=== PATIENT | male | born 1945 | race Caucasian/White ===

== ENCOUNTER 2019-08-18 08:53 | Outpatient (CLI) | payer OTHER ==
[~2019-08-18] VITALS: Ht 170.2 cm; Wt 65.9 kg
--- NOTE | ~2019-08-18 | HEMODYNAMI ---
PATIENT:RADHA CHUN MEDICAL RECORD: [id number] : 45 LOCATION:[facility] ADMISSION DATE: 08/18/19 Generatedon:08/18/201910:55 Patient name: RADHA CHUN Patient #: [id number] SSN: [id number] : 1945 Date of study: 08/18/2019 Page: Of Hemodynamic Procedure Report Patient Data Patient Demographics Procedure consent was obtained First Name: RADHA Gender: Male Last Name: LAY : 1945 Patient #: [id number] Age: 73 year(s) Race: SSN: [id number] Additional ID: [id number] Contact details Address: [address] [place] [address] ROAD State: [place] City: [facility] Zip code: [address] Admission Admission Data Admission Date: 08/18/2019 Admission Time: 8:53 Arrival Date: 08/18/2019 Arrival Time: 0:00 Admit Source: Other Insurance Payor: Private health insurance 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 Peripheral Procedures AFRO (Diagnostic) Procedure Description Procedure Date Procedure Date: 08/18/2019 Procedure Start Time: 10:31 Procedure End Time: 10:53 Procedure Staff Name Function Stew Mccullough MD Performing Physician Rajni Torres RT Monitor Anjelica Montaño RT Scrub Bridget Lockhart RN Nurse Procedure Data Cath Procedure Fluoroscopy Diagnostic fluoroscopy Total fluoroscopy Time: 4.4 time: 4.4 min min Diagnostic fluoroscopy Total fluoroscopy dose: 120 dose: 120 mGy mGy Contrast Material Contrast Material Type Amount (ml) Isovue 300 82 Entry Location Entry Primary Successful Side Size Upsize Upsize Entry Closure Succes sful Closure Location (Fr) 1 (Fr) 2 (Fr) Remarks Device Remarks Femoral Right 5 Fr 6 Fr 6 Fr Exoseal artery Long Short Estimated blood loss: 5 ml Diagnostic catheters Device Type Used For End Catheter Placement DIAGNOSTIC UF 5Fr Multi-vessel catheter ([id number]) Angiography Procedure Complications No complications Procedure Medications Medication Administration Route Dosage 0.9% NaCl I.V. 100 ml/hr Heparin Flush Bag added to field 2 bags (1000units/500ml NS) Lidocaine 2% added to field 20 Oxygen NC 2 l/min Versed I.V. 1 mg Fentanyl I.V. 50 mcg Heparin Bolus I.V. 4000 units Versed I.V. 0.5 mg Fentanyl I.V. 25 mcg Hemodynamics Rest BSA: 1.77 (m2) HGB: 12.7 (g/dl) O2 Consumption: Estimated: 191.19 (ml/min) O2 Co nsumption indexed: Estimated:108.02 (ml/min/m) Heart Rate: 51 (bpm) Snapshots Pre Cath Intra NCS Post Cath Vital Signs Time Heart Resp SPO2 etCO2 NIBP (mmHg) Rhythm Pain Sedation Rate (ipm) (%) (mmHg) Status Level (bpm) 10:19:51 51 13 100 32.4 202/87(168) NSR 0 (11) 10(A) , No pain 10:24:24 52 14 96 30.1 178/81(140) NSR 0 (11) 10(A) , No pain 10:28:48 53 12 97 32.4 183/80(144) NSR 0 (11) 10(A) , No pain 10:33:47 51 11 100 27.8 Measuring NSR 0 (11) 10(A) , No pain 10:34:26 53 13 97 30.1 170/72(137) NSR 0 (11) 9(A) , No pain 10:38:54 53 10 100 16.5 153/62(121) NSR 0 (11) 9(A) , No pain 10:43:12 55 10 96 37.6 146/68(110) NSR 0 (11) 9(A) , No pain 10:47:28 64 17 100 36.1 154/77(126) NSR 0 (11) 9(A) , No pain 10:51:48 56 27 99 38.3 158/71(125) NSR 0 (11) 10(A) , No pain Medications Time Medication Route Dose Verified Delivered Reason Notes Ef fectiveness by by 10:17:49 0.9% NaCl I.V. 100 Stew Bridget used for ml/hr Jamel Lockhart brand coordinator 10:17:57 Heparin Flush added 2 Stew Bridget used for Bag to bags Jamel Lockhart procedure (1000units/500ml field RN NS) 10:18:07 Lidocaine 2% added 20ml Stew Gill for local to vial Jamel Lockhart anesthetic field RN 10:18:16 Oxygen NC 2 Stew Bridget for low 02 l/min Jamel Lockhart sats RN 10:27:22 Versed I.V. 1 mg Stew Bridget for Jamel Lockhart sedation RN 10:27:32 Fentanyl I.V. 50 Stew Bridget for mcg Jamel TRUONG Chantelle sedation RN 10:33:01 Fentanyl I.V. 25 Stew Bridget for mcg Jamel TRUONG Chantelle sedation RN 10:33:50 Versed I.V. 0.5 Stew Bridget for mg Jamel TRUONG Chantelle sedation RN 10:36:30 Heparin Bolus I.V. 4000 Stew Bridget Per verified units Jamel Lockhart physician with dr HINA mccullough Procedure Log Time Note 9:52:52 Informed consent obtained and on chart 9:53:30 Admit Source: Other 9:53:45 Arrival Date: 08/18/2019 12:00:00 AM 9:54:14 Insurance Payor : Private health insurance 9:54:46 Patient Height : 67 inches 9:54:50 Patient Weight : 146 lbs 9:56:29 Diagnostic Cath Status : Elective 9:57:35 Procedure Status Peripheral. 9:57:38 Bridget Lockhart RN sent for patient. Start room use. 9:57:39 Time tracking: Regular hours (M-F 7:00 - 5:00) 9:57:45 Plan of Care:Hemodynamics will remain stable., Cardiac rhythm will remain stable., Comfort level will be maintained., Respiratory function will remain adequate., Patient/ family verbilizes understanding of procedure., Procedure tolerated without complication., Recovers from procedure without complications.. 10:17:33 Vital chart was started 10:17:49 0.9% NaCl 100 ml/hr I.V. was administered by Bridget Lockhart RN; used for procedure; Verbal order read back and verified. 10:17:57 Heparin Flush Bag (1000units/500ml NS) 2 bags added to field was administered by Bridget Lockhart RN; used for procedure; Verbal order read back and verified. 10:18:07 Lidocaine 2% 20ml vial added to field was administered by Bridget Lockhart RN; for local anesthetic; Verbal order read back and verified. 10:18:16 Oxygen 2 l/min NC was administered by Bridget Lockhart RN; for low 02 sats; Verbal order read back and verified. 10:19:52 Patient received from Pre/Post Procedure Room to CCL 2 Alert and oriented. Tansferred to table in Supine position. 10:19:53 Warm blankets applied, and verenice hugger turned on for patient comfort. 10:19:53 Correct patient and procedure confirmed by team. 10:19:54 ECG and BP/O2 sat monitors applied to patient. 10:19:55 Baseline sample Acquired. 10:19:59 Rhythm: sinus rhythm 10:20:05 H&P Date Dictated: 08/18/2019 Within 30 days and on chart., H&P Addendum completed by physician on day of procedure. (MUST COMPLETE FOR ALL OUTPATIENTS). 10:20:06 Pre-procedure instructions explained to patient. 10:20:07 Pre-op teaching completed and patient verbalized understanding. 10:20:08 Family in waiting room. 10:20:09 Patient NPO since Midnight. 10:20:12 Is the patient allergic to Iodine/contrast media? No. 10:20:14 Was the patient premedicated? No 10:20:14 Is patient on blood thinner?Yes 10:20:17 ACC The patient was administered the following blood thiners within the last 24 hours: ACCAspirin, ACCPlavix 10:20:23 Patient diabetic? No. 10:20:27 Previous problem with sedation/anesthesia? No ? 10:20:32 Snore? Yes 10:20:34 Sleep apnea? No 10:20:36 Deviated septum? Yes 10:20:37 Opens mouth fully? Yes 10:20:38 Sticks out tongue? Yes 10:20:40 Airway obstruction? No ? 10:20:43 Dentures? No ? 10:21:06 Pre procedure: right dorsailis pedis pulse 1+ Palpable, but thready & weak; easily obliterated 10:21:09 Pre procedure: left dorsailis pedis pulse 1+ Palpable, but thready & weak; easily obliterated 10:21:11 Patient pain scale 0/10 ?. 10:21:16 IV patent on arrival in left forearm with 0.9% NaCl at O. 10:21:18 Lab results completed and on chart. 10:21:23 Bilateral groins area was prepped with chlora-prep and draped in sterile fashion 10:21:24 Alarms reviewed by R. N. 10:21:24 Sharps counted by scrub and verified by R.N. 10:24:11 1) 90+ Normal kidney functon but urine findings or structural abnormalities or genetic trait point to kidney disease. 10:24:39 Maximum allowable contrast dose (3.7 X eGFR X 0.75)250 ml. 10:24:44 Physician arrived 10:24:45 --------ALL STOP TIME OUT------ 10:24:45 Final Timeout: patient, procedure, and site verified with staff and physician. All members of the team are in agreement. 10:24:47 Bilateral groins site verified by team. 10:24:50 Fire Safety Assessment: A--An alcohol-based skin anteseptic being used preoperatively., C--Open oxygen or nitrous oxide is being used., D--An ESU, laser, or fiber-optic light is being used. 10:24:55 Sedation plan: IV Moderate Sedation Medication:Versed, Fentanyl 10:25:15 Use device set Femoral Dx 10:25:16 ACIST Syringe (59360) opened to sterile field. 10:25:17 Bag Decanter (2002S) opened to sterile field. 10:25:17 Medline Cath Pack ([id number]) opened to sterile field. 10:25:19 ACIST Hand Control (07861) opened to sterile field. 10:25:19 ACIST Manifold (17728) opened to sterile field. 10:25:21 Tegaderm 4 x 4 (1626W) opened to sterile field. 10:25:23 SHEATH 5FR [place] (UGT711) opened to sterile field. 10:25:24 EMERALD Guide Wire (225-252) opened to sterile field. 10:27:22 Versed 1 mg I.V. was administered by Bridget Lockhart RN; for sedation; Verbal order read back and verified. 10:27:32 Fentanyl 50 mcg I.V. was administered by Bridget Lockhart RN; for sedation; Verbal order read back and verified. 10::43 Lab Result : eGFR NONAFRICAN 90 ml/min ::43 Lab Result : Creatinine 0.7 mg/dl 10::43 Lab Result : BUN 7 mg/dl 10::43 Lab Result : Hemoglobin 12.7 g/dl 10::03 Procedure started. 10:31:03 Full Disclosure recording started 10:31:07 Local anesthetic to right femoral artery with Lidocaine 2% by Stew Mccullough MD.INITIAL ACCESS ONLY 10:31:17 A 5 Fr sheath was inserted into the Right Femoral artery 10:32:20 A DIAGNOSTIC UF 5Fr catheter ([id number]) was advanced over the wire and used for Multi-vessel Angiography. 10:33:01 Fentanyl 25 mcg I.V. was administered by Bridget Lockhart RN; for sedation; Verbal order read back and verified. 10:33:50 Versed 0.5 mg I.V. was administered by Bridget Lockhart RN; for sedation; Verbal order read back and verified. 10:35:48 Abdominal angiogram w/ runoff was performed. 10:36:15 GLIDE WIRE ANGLE 260cm (LF6156) opened to sterile field. 10:36:16 SHEATH 6FR Destination (RSR01) opened to sterile field. 10:36:30 Heparin Bolus 4000 units I.V. was administered by Bridget Lockhart RN; Per physician; verified with dr mccullough Verbal order read back and verified. 10:36:47 UF catheter used to advance glide wire around the horn 10:37:05 Catheter removed. 10:37:23 Sheath upsized to a 6 Fr Long. 10:39:32 CHOICE PT Extra Support J 300cm guide wire ([id number]) opened to sterile field. 10:39:35 INFLATOR Merit BasixCompak (DZ2396) opened to sterile field. 10:39:46 choice pt wire advanced. 10:39:49 Wire advanced across lesion. 10:41:42 Inflate balloon Inflation number: 1 A POWERFLEX PRO 6.0 x 40 x 135cm balloon ([id number]) was prepped and advanced across the Mid Superficial Femoral, Left , then inflated to 9 ANTONIO for 0:10 (min:sec) . 10:41:48 Balloon removed over the wire. 10:43:16 SMART 6 X 40 X 120 stent ([id number]) was deployed across Mid Superficial Femoral, Left . 10:43:21 Stent catheter was removed intact over wire. 10:44:12 Inflation number: 2 The POWERFLEX PRO 6.0 x 40 x 135cm balloon ([id number]) was reinflated across the Mid Superficial Femoral, Left , to 13 ANTONIO for 0:10 (min:sec) . 10:45:06 Stent catheter was removed intact over wire. 10:45:07 ACT drawn and resulted at 264 seconds. (normal therapeutic range 180-240 seconds). 10:45:10 Wire removed. 10:45:20 Sheath upsized to a 6 Fr Short. 10:45:29 EXOSEAL 6Fr (EX600) opened to sterile field. 10:45:31 SHEATH 6FR [place] (BWF368) opened to sterile field. 10:45:49 Sheath removed intact; hemostasis achieved with Exoseal to the Right Femoral artery. 10:45:51 Procedure ended.(Physican Out) 10:46:07 Fluoroscopy time 04.40 minutes. 10:46:11 Flurop Dose total: 120 10:46:11 Fluoroscopy dose: 120 mGy 10:46:16 Dose Area Product 19626 mGy/cm. 10:46:21 Contrast amount:Isovue 300 82ml. 10:52:25 Insertion/operative site no bleeding no hematoma. 10:52:28 Post-op/insertion site Right Femoral artery dressed using a 4 x 4 and Tegaderm. 10:52:29 Post Procedure Pulses reassessed and unchanged 10:52:32 Post procedure rhythm: unchanged. 10:52:35 Estimated blood loss: 5 ml 10:52:37 Post procedure instruction explained to patient.Patient verbalizes understanding. 10:52:37 Patient needs reinforcement of post procedure teaching. 10:52:47 Procedure and supply charges have been captured, reviewed, submitted and are correct. 10:52:51 Procedure Complication : No complications 10:52:53 Vital chart was stopped 10:52:58 AFRO Findings: PVD: UPTWIST SPINNER performed (see procedure notes) 10:53:00 Operative report dictated upon procedure completion. 10:53:01 See physician's report for complete and final results. 10:53:03 Report given to Pre/Post Procedure Room. 10:53:05 Patient transfered to Pre/Post Procedure Room with Stretcher. 10:53:13 Procedure ended. 10:53:13 Full Disclosure recording stopped 10:53:24 ACC-PCI Only Patient was given prescriptions, or instructed by Stew Mccullough MD to start/continue the following medications upon discharge: Plavix 10:53:25 End room use (Document Last) Intervention Summary Intervention Notes Time ActionType Lesion and Equipment Action# Pressure Duration Attributes Used 10:41:42 Inflate Mid POWERFLEX 1 9 00:10 balloon Superficial PRO 6.0 x Femoral, 40 x 135cm Left balloon ([id number]) 10:43:16 Deploy self Mid SMART 6 X 1 expanding Superficial 40 X 120 stent Femoral, stent Left ([id number]) 10:44:12 Reinflate Mid POWERFLEX 2 13 00:10 balloon Superficial PRO 6.0 x Femoral, 40 x 135cm Left balloon ([id number]) Device Usage Item Name Manufacture Quantity Catalog Number Hospital Part Current Minim al Lot# / Charge Number Stock Stock Serial# Code ACIST Acist 1 16854 360076 427584 738557 20 Syringe Medical (85137) Systems Inc Bag Microtek 1 692153 79161 455931 5 Decanter Medical Inc. () Medline Medline 1 [id number] 850482 96148 281175 5 Cath Pack ([id number]) ACIST Hand Acist 1 90792 772453 558121 472048 5 Control Medical (90267) Systems Inc ACIST Acist 1 15230 824324 301358 308969 5 Manifold Medical (46417) Systems Inc Tegaderm 4 3M 1 1626W 782505 933695 108576 5 x 4 (1626W) SHEATH 5FR Terumo 1 TVM050 746654 996177 920607 5 [place] (OLQ395) EMERALD Cardinal 1 502-455 989629 022262 591307 5 Guide Wire Health (502-455) DIAGNOSTIC Cardinal 1 [id number] 982473 571656 970204 10 UF 5Fr Health catheter (840327G0) GLIDE WIRE Terumo 1 HY3094 351696 361394 160175 5 ANGLE 260cm (RZ1208) SHEATH 6FR Terumo 1 RSR01 256061 77436 470304 5 Destination (RSR01) CHOICE PT [place] 1 [id number] 703809 842962 232907 5 Extra Scientific Support J 300cm guide wire ([id number]) INFLATOR Merit 1 BW7032 392357 698465 478426 15 [facility] [place] Medical BasixCompak (UG3571) POWERFLEX Cardinal 1 [id number] 600703 049996 117295 5 PRO 6.0 x Health 40 x 135cm balloon ([id number]) SMART 6 X Cardinal 1 [id number] 675938 416305 740479 0 [id number] 40 X 120 Health stent ([id number]) EXOSEAL 6Fr Cardinal 1 EX600 470643 699072 136737 10 (EX600) Health SHEATH 6FR Terumo 1 BUY360 105806 072894 696075 40 [place] (AZR947) Signature Audit [place] Stage Time Signature Unsigned Intra-Procedure 08/18/2019 Anjelica Montaño 10:50:25 AM RT(R) Intra-Procedure 08/18/2019 Bridget 10:51:26 AM Chantelle SANTAMARIA Intra-Procedure 08/18/2019 Anjelica Montaño 10:55:45 AM RT(R) Signatures Performing Physician : Signature : Stew Mccullough MD Date : Time : Monitor : Rajni Brian Signature : RT Date : Time : Nurse : Bridget Signature : Chantelle RN Date : Time : [address] [place] [address]
[2019-08-18] MEDS ORDERED: LEXAPRO10 MG PO (09:29)
[2019-08-18] MEDS ORDERED: COREG6.25 MG PO (09:29)
[2019-08-18] MEDS ORDERED: WELLBUTRIN SR150 MG PO (09:29)
[2019-08-18] MEDS ORDERED: LIPITOR40 MG PO (09:29)
[2019-08-18] MEDS ORDERED: PLAVIX75 MG PO (09:29)
[2019-08-18] MEDS ORDERED: LISINOPRIL10 MG PO (09:30)
[2019-08-18 09:46] VITALS: BP 180/64; Ht 170.2 cm; Wt 65.9 kg
[2019-08-18 09:52] LABS: BASOPHILS 0.2 % (0-2); EOSINOPHILS 3.2 % (0-7); HEMATOCRIT 38.4 % (42.0-54.0); HEMOGLOBIN 12.7 g/dL (13.5-17.5); IMMATURE GRANULOCYTES 0.3 % (0-5); LYMPHOCYTES 15.4 % (15-50); MCH 35.4 pg (26.0-34.0); MCHC 33.1 g/dL (31.0-37.0); MEAN PLATELET VOLUME 10.8 fL (7.4-10.4); MONOCYTES 9.2 % (2-11); NEUTROPHILS 71.7 % (40-80); RBC 3.59 10x6/uL (4.20-6.10); RDW 11.8 % (11.5-14.5); WBC 6.6 10x3/uL (4.8-10.8)
[2019-08-18 09:55] LABS: PLATELET COUNT 173 10x3/uL (130-400)
[2019-08-18 10:02] LABS: CALC OSMOLALITY 276 mosm/kg (275-300); CALCIUM 8.7 mg/dL (8.5-10.1); CARBON DIOXIDE 27.5 mmol/L (21.0-32.0); CHLORIDE - SERUM 105 mmol/L (98-107); CREATININE - SERUM 0.7 mg/dL (0.6-1.3); GLUCOSE 90 mg/dL (74-106); POTASSIUM - SERUM 3.6 mmol/L (3.5-5.1); SODIUM 140 mmol/L (136-145); UREA NITROGEN 7 mg/dL (7-18); eGFR NON AFRICAN AMERICAN > 90 mL/min (90-120)
--- NOTE | 2019-08-18 11:01 | NUR ---
PT ARRIVED BY STRETCHER. PLACED ON MONITORS. ASSESSMENT COMPLETED. VSS. RIGHT GROIN DRESSING C/D/I. NO S/S OF HEMATOMA NOTED. CALL LIGHT WITHIN REACH.
--- NOTE | 2019-08-18 11:15 | NUR ---
PT RESTING COMFORTABLY. RIGHT GROIN DRESSING C/D/I. NO S/S OF HEMATOMA NOTED. CALL LIGHT WITHIN REACH. DR. CHRISTIE ROUNDED AND SPOKE WITH PT. PLAN TO BRING PT BACK FOR RIGHT SFA STENT WHEN CONVENIENT FOR PATIENT.
--- NOTE | 2019-08-18 11:45 | NUR ---
PT RESTING COMFORTABLY. VSS. IN SUPINE POSITION. CALL LIGHT WITHIN REACH. RIGHT GROIN DRESSING C/D/I. NO S/S OF HEMATOMA NOTED. BILATERAL FEET WARM TO TOUCH. CAP REFILL < 3 SECS. PEDAL PULSES DOPPLERABLE.
--- NOTE | 2019-08-18 12:20 | NUR ---
PT RESTING COMFORTABLY. VSS. RIGHT GROIN DRESSING C/D/I. NO S/S OF HEMATOMA NOTED. CALL LIGHT WITHIN REACH. PT VOIDED 300cc OF CLEAR YELLOW URINE IN URINAL. NO DIFFICULTY NOTED.
--- NOTE | 2019-08-18 13:00 | NUR ---
PT RESTING COMFORTABLY. VSS. RIGHT GROIN DRESSING C/D/I. NO S/S OF HEMATOMA NOTED. CALL LIGHT WITHIN REACH.
--- NOTE | 2019-08-18 13:30 | NUR ---
RIGHT GROIN DRESSING C/D/I. NO S/S OF HEMATOMA NOTED. CALL LIGHT WITHIN REACH. VSS. NO NEEDS AT THIS TIME. PT DOES NOT WANT TO SCHEDULE APPT TO COME BACK FOR RIGHT LEG STENT AT THIS TIME. HE STATES HES GOING TO HAVE TO SPEAK WITH HIS JOB TO SEE WHEN IT WOULD BE MOST CONVENIENT.
--- NOTE | 2019-08-18 14:00 | NUR ---
RIGHT GROIN DRESSING C/D/I. NO S/S OF HEMATOMA NOTED. CALL LIGHT WITHIN REACH. HEAD OF BED INC TO 30 DEGREES. TOLERATED WELL. SET UP WITH SANDWICH TRAY AND DRINK AT THIS TIME.
--- NOTE | 2019-08-18 14:30 | NUR ---
LEFT ARM PIV D/C'D WITH CATH TIP INTACT. TOLERATED WELL. RIGHT GROIN DRESSING C/D/I. NO S/S OF HEMATOMA NOTED. PT INSTRUCTED TO GET UP AND DRESSED AT THIS TIME.
--- NOTE | 2019-08-18 14:45 | NUR ---
DISCUSSED DISCHARGE INSTRUCTIONS WITH PT. HE VOICED UNDERSTANDING.
--- NOTE | 2019-08-18 14:46 | NUR ---
DISCUSSED WITH PT THE NEED FOR HIM TO TAKE 4 DAYS OFF WORK DUE TO THEY TYPE OF WORK HE DOES ([employer] L[employer]ING/[employer]ING [employer]AIRS). HE STATES THAT HE ONLY TOOK OFF WORK TOMORROW. HE STATES HE WILL SIT AT A DESK AND HAVE OTHERS DO HIS WORK. I INFORMED HIM OF THE RISK OF NOT FOLLOWING DISCHARGE INSTRUCTIONS AND HE VOICED UNDERSTANDING. HE DOES NOT WANT TO SCHEDULE FIX OF RIGHT SFA AT THIS TIME. I CALLED PROMISE AT [facility]'S OFFICE AND SHE WILL FOLLOW UP WITH HIM REGARDING SCHEDULING THIS PROCEDURE.
--- NOTE | 2019-08-18 15:05 | NUR ---
PT TAKEN OUT TO VEHICLE BY WHEELCHAIR. NO S/S OF DISTRESS NOTED. ALL BELONGINGS AND PAPERWORK IN HAND.
--- NOTE | 2019-08-22 13:28 | OP ---
PATIENT NAME: RADHA CHUN MEDICAL RECORD: [id number] :45 LOCATION:[facility] ADMISSION DATE: SURGEON: CARLEEN CHRISTIE MD DATE OF OPERATION: 08/18/2019 PROCEDURES: 1. SEWER LINE REPAIRER stent left SFA. 2. Aortofemoral runoff. 3. Abdominal aortography. INDICATION: Claudication and peripheral vascular disease. PROCEDURE IN DETAIL: After informed consent was obtained and after a detailed description of risks, benefits as well as alternative therapies, the patient elected to proceed with angiogram and angioplasty. The right femoral area was prepped and draped in normal sterile fashion. Right femoral artery was cannulated via modified Seldinger technique with placement of a 6-Georgian ojexjx-fla-yoig sheath. All catheters exchanged through this sheath. FINDINGS: The abdominal aortography was performed. The catheter was pulled down for aortofemoral runoff. Abdominal aortography reveals no significant abdominal aortic disease, no dissection or aneurysm formation. RIGHT LEG: A. Iliac: The common internal and external iliacs have moderate irregularities, heavy calcification, but no flow-limiting stenosis. B. Femoral system: The common and deep femoral are widely patent. Superficial femoral has 90% to 95% stenosis. C. Popliteal and infrapopliteal vessels: The popliteal is patent. Anterior tibial and posterior tibial appear to be occluded. There does appear to be 1-vessel runoff through a moderately diseased peroneal. LEFT LEG: A. Iliac: The common internal and external iliacs have moderate irregularities, but no flow-limiting stenosis. B. Femoral system: The common and deep femoral are widely patent. Superficial femoral has a previously placed stent that is widely patent; however, there is 90% to 95% stenosis in the mid distal vessel. C. Popliteal and infrapopliteal vessels: The popliteal is patent. Anterior tibial appears to be totally occluded. There is 2-vessel runoff through a diseased, but patent peroneal and posterior tibials. SEWER LINE REPAIRER STENT OF THE LEFT SFA: The balloon used was a 6.0 balloon. This yielded suboptimal result with severe intimal dissection after the balloon ruptured. Stenting was undertaken then with a 6 x 40 SMART stent. Result was 0% residual. IMPRESSION: Successful percutaneous transluminal angioplasty stent of the left superficial femoral artery going from 90% to 95% initial stenosis to 0% residual. PLAN: Plan For SEWER LINE REPAIRER stent of the right SFA in the future. TRANSINT:[id number] Voice Confirmation ID: [id number] DOCUMENT ID: [id number] OPERATIVE REPORT [id number] RADHA CHUN, CARLEEN TRUONG at 1328 CC: [id number] DICTATION DATE: 08/18/19 1137 POULTRY HUSBANDMAN: 08/18/19 1150 DEP CLI 08/18/19 [place] [id number] [place] [id number]
== END 2019-08-18 15:05 | disposition home or self-care (01) ==
LOC: D.CATH 08:53
PROVIDERS: ATTEND Internal Medicine Interventional Cardiology
DX: I70.213 Atherosclerosis of native arteries of extremities with intermittent claudication, bilateral legs (principal)

== ENCOUNTER 2019-09-01 08:47 | Outpatient (CLI) | payer OTHER ==
[~2019-09-01] VITALS: Ht 170.2 cm; Wt 67.3 kg
--- NOTE | ~2019-09-01 | HEMODYNAMI ---
PATIENT:RADHA CHUN MEDICAL RECORD: [id number] : 45 LOCATION:[facility] ADMISSION DATE: 09/01/19 Generatedon:09/01/201912:50 Patient name: RADHA CHUN Patient #: [id number] SSN: [id number] : 1945 Date of study: 09/01/2019 Page: Of Hemodynamic Procedure Report Patient Data Patient Demographics Procedure consent was obtained First Name: RADHA Gender: Male Last Name: LAY : 1945 Patient #: [id number] Age: 73 year(s) Race: SSN: [id number] Additional ID: [id number] Contact details Address: [address] [place] [address] ROAD State: [place] City: [facility] Zip code: [address] Past Medical History Allergies: No known allergies Admission Admission Data Admission Date: 09/01/2019 Admission Time: 8:47 Lab Results Lab Result Date: 09/01/2019 Lab Result Time: 0:00 Biochemistry Name Units Result Min Max BUN mg/dl 7 --(*---)-- 7 18 Creatinine mg/dl 0.8 --(-*--)-- 0.6 1.3 eGFR ml/min 90 --(*---)-- 90 120 NONAFRICAN CBC Name Units Result Min Max Hemoglobin g/dl 12.9 -*(----)-- 13.5 17.5 Procedure Procedure Types Cath Procedure Peripheral vascular Intervention Stent Stent-Fem/Popw/plasty Procedure Description Procedure Date Procedure Date: 09/01/2019 Procedure Start Time: 12:21 Procedure End Time: 12:48 Procedure Staff Name Function Stew Mccullough MD Performing Physician Matilda Ferrer RT Monitor Geri Rodriguez RT Monitor Heron Sheehan RN Nurse Ling Hernandez RT Scrub Procedure Data Cath Procedure Fluoroscopy Diagnostic fluoroscopy Total fluoroscopy Time: 8.4 time: 8.4 min min Diagnostic fluoroscopy Total fluoroscopy dose: 61 dose: 61 mGy mGy Contrast Material Contrast Material Type Amount (ml) Isovue 300 75 Entry Location Entry Primary Successful Side Size Upsize Upsize Entry Closure Succes sful Closure Location (Fr) 1 (Fr) 2 (Fr) Remarks Device Remarks Femoral Left 6 Fr 6 Fr Exoseal artery Short Long Estimated blood loss: 10 ml Diagnostic catheters Device Type Used For End Catheter Placement DIAGNOSTIC IMT 5Fr Procedure Catheter ([id number]) Procedure Complications No complications Procedure Medications Medication Administration Route Dosage 0.9% NaCl I.V. 100 ml/hr Oxygen etCO2 Nasal cannula 2 l/min Heparin Flush Bag added to field 2 bags (1000units/500ml NS) Lidocaine 2% added to field 20 Versed I.V. 2 mg Fentanyl I.V. Versed I.V. 1 mg Heparin Bolus I.V. 4000 units Plavix P.O. 75 mg Hemodynamics Rest HGB: 12.9 (g/dl) Heart Rate: 59 (bpm) Snapshots Pre Cath Intra NCS Post Cath Vital Signs Time Heart Resp SPO2 etCO2 NIBP (mmHg) Rhythm Pain Sedation Rate (ipm) (%) (mmHg) Status Level (bpm) 12:13:17 55 15 98 15.7 213/83(164) NSR 0 (11) 10(A) , No pain 12:17:51 57 12 98 37.5 201/72(151) NSR 0 (11) 10(A) , No pain 12:23:33 60 11 100 29.2 191/75(143) NSR 0 (11) 10(A) , No pain 12:28:10 61 10 100 0 172/75(143) NSR 0 (11) 10(A) , No pain 12:32:32 62 10 100 7.5 169/74(134) NSR 0 (11) 9(A) , No pain 12:37:58 65 10 100 31.5 173/71(139) NSR 0 (11) 9(A) , No pain 12:42:26 65 10 100 33 185/78(137) NSR 0 (11) 10(A) , No pain 12:46:54 67 13 100 31.5 182/89(141) NSR 0 (11) 10(A) , No pain Medications Time Medication Route Dose Verified Delivered Reason Notes Effectiveness by by 12:09:26 0.9% NaCl I.V. 100 Heron Heron Per physician ml/hr Aguila Sheehan RN RN 12:09:36 Oxygen etCO2 2 Heron Heron for low 02 sats Nasal l/min Aguila Sheehan cannula RN RN 12:09:48 Heparin Flush added 2 Heron Heron used for Bag to bags Aguila Sheehan procedure (1000units/500ml RN RN NS) 12:09:59 Lidocaine 2% added 20ml Heron Heron for local to vial Lorsamir Sheehan anesthetic field RN RN 12:19:41 Versed I.V. 2 mg Heron Heron for sedation Aguila Sheehan RN RN 12:19:50 Fentanyl I.V. Heron Heron for sedation Aguila Sheehan RN RN 12:22:56 Versed I.V. 1 mg Heron Heron for sedation Aguila Sheehan RN RN 12:26:01 Heparin Bolus I.V. 4000 Heron Heron for units Aguila Sheehan anticoagulation RN RN 12:43:19 Plavix P.O. 75 mg Ehron Heron for Aguila Sheehan antiplatelet RN RN therapy Procedure Log Time Note 11:54:46 Diagnostic Cath Status : Elective 11:55:18 Procedure Status Elective Heart Cath (OP). 11:55:21 Matilda Ferrer RT(R) sent for patient. Start room use. 11:55:25 Time tracking: Regular hours (M-F 7:00 - 5:00) 11:55:34 Plan of Care:Hemodynamics will remain stable., Cardiac rhythm will remain stable., Comfort level will be maintained., Respiratory function will remain adequate., Patient/ family verbilizes understanding of procedure., Procedure tolerated without complication., Recovers from procedure without complications.. 11:56:57 Patient received from Pre/Post Procedure Room to CCL 1 Alert and oriented. Tansferred to table in Supine position. 11:58:30 Signed procedure consent form obtained from patient. 11:58:32 Warm blankets applied, and verenice hugger turned on for patient comfort. 11:58:33 Correct patient and procedure confirmed by team. 11:58:40 ECG and BP/O2 sat monitors applied to patient. 11:58:48 H&P Date Dictated: 09/01/2019 H&P Addendum completed by physician on day of procedure. (MUST COMPLETE FOR ALL OUTPATIENTS), New H&P dictated by physician.. 11:58:53 Pre-procedure instructions explained to patient. 11:58:54 Pre-op teaching completed and patient verbalized understanding. 11:59:05 Family in patients room. 11:59:08 Patient NPO since Midnight. 11:59:19 Patient allergic to No known allergies 11:59:42 Deviated septum? Yes 12:00:26 Is the patient allergic to Iodine/contrast media? No. 12:00:28 Was the patient premedicated? Yes 12:00:31 Is patient on blood thinner?Yes 12:00:37 ACC The patient was administered the following blood thiners within the last 24 hours: ACCPlavix 12:00:41 Patient diabetic? No. 12:00:45 ----Pre-sedation anethsthesia assessment.---- 12:00:51 Previous problem with sedation/anesthesia? No ? 12:01:22 Snore? No 12::28 Sleep apnea? No 12::31 Opens mouth fully? Yes 12:01:35 Sticks out tongue? Yes 12:02:01 Airway obstruction? Yes deviated nasal septum 12:02:06 Dentures? No ? 12:03:28 Lab Result : Creatinine 0.8 mg/dl 12:03:28 Lab Result : BUN 7 mg/dl 12:03:28 Lab Result : Hemoglobin 12.9 g/dl 12:03:28 Lab Result : eGFR NONAFRICAN 90 ml/min 12:03:59 Pre procedure: left dorsailis pedis pulse 1+ Palpable, but thready & weak; easily obliterated 12:04:10 Patient pain scale 0/10 ?. 12:04:32 Lab results completed and on chart. 12:07:21 Risk of Mortality: 0.1 12:07:26 Risk of blood transfusion: 0.5 12:07:32 Risk of RAMIRO: 1.1 12:07:39 Left groin area was prepped with chlora-prep and draped in sterile fashion 12:07:42 Alarms reviewed by R. N. 12:07:43 Sharps counted by scrub and verified by R.N. 12:09:26 0.9% NaCl 100 ml/hr I.V. was administered by Heron Lorigan RN; Per physician; Verbal order read back and verified. 12:09:36 Oxygen 2 l/min etCO2 Nasal cannula was administered by Heron Sheehan RN; for low 02 sats; Verbal order read back and verified. 12:09:48 Heparin Flush Bag (1000units/500ml NS) 2 bags added to field was administered by Heron Sheehan RN; used for procedure; Verbal order read back and verified. 12:09:59 Lidocaine 2% 20ml vial added to field was administered by Heron Sheehan RN; for local anesthetic; Verbal order read back and verified. 12:10:53 Vital chart was started 12:11:01 Use device set CATH PACK 12:11:04 ACIST Syringe (23887) opened to sterile field. 12:11:05 ACIST Hand Control (96480) opened to sterile field. 12:11:06 ACIST Manifold (55772) opened to sterile field. 12:11:06 Medline Cath Pack ([id number]) opened to sterile field. 12:11:07 Bag Decanter (2002S) opened to sterile field. 12:11:08 EMERALD Guide Wire (502-286) opened to sterile field. 12:11:19 INFLATOR Merit BasixCompak (ON6348) opened to sterile field. 12:11:29 SHEATH 6FR Destination (RSR01) opened to sterile field. 12:11:41 SHEATH 6FR Crary (CJF298) opened to sterile field. 12:11:56 GLIDE WIRE Super Stiff Angled 260cm (UN2987) opened to sterile field. 12:15:16 Physician arrived 12:15:18 --------ALL STOP TIME OUT------ 12:15:20 Final Timeout: patient, procedure, and site verified with staff and physician. All members of the team are in agreement. 12:15:23 Left groin site verified by team. 12:15:31 Fire Safety Assessment: A--An alcohol-based skin anteseptic being used preoperatively., C--Open oxygen or nitrous oxide is being used., D--An ESU, laser, or fiber-optic light is being used. 12:15:38 Physical assessment completed. ASA score P 2 - A patient with mild systemic disease as per Stew Mccullough MD. 12:15:45 1) 90+ Normal kidney functon but urine findings or structural abnormalities or genetic trait point to kidney disease. 12:15:53 Maximum allowable contrast dose (3.7 X eGFR X 0.75)250 ml. 12:16:02 Sedation plan: IV Moderate Sedation Medication:Versed, Fentanyl 12:19:04 Rhythm: sinus rhythm 12:19:11 Baseline sample Acquired. 12:19:41 Versed 2 mg I.V. was administered by Heron Sheehan RN; for sedation; Verbal order read back and verified. 12:19:50 Fentanyl I.V. was administered by Heron Sheehan RN; for sedation; Verbal order read back and verified. 12:19:55 Zero performed for pressure channel P1 12::15 Procedure started. 12::15 Full Disclosure recording started 12:21:37 Local anesthetic to left femerol artery with Lidocaine 2% by Stew Mccullough MD.INITIAL ACCESS ONLY 12:22:30 A 6 Fr Short sheath was inserted into the Left Femoral artery 12:22:39 A DIAGNOSTIC IMT 5Fr Catheter ([id number]) was advanced over the wire and used for Procedure. 12:22:56 Versed 1 mg I.V. was administered by Heron Sheehan RN; for sedation; Verbal order read back and verified. 12:23:02 the glidewire is used to advance cath. 12:23:42 IMT ADVANCED OVER THE HORN. 12:24:49 IMT REMOVED OVER THE WIRE. 12:24:56 Sheath upsized to a 6 Fr Long. 12:25:18 LONG SHEATH ADVANCED AROUND HORN. 12:25:33 CHOICE PT Extra Support J 300cm guide wire ([id number]) opened to sterile field. 12:25:54 CHOICE PT wire advanced. 12:25:59 Wire advanced across lesion. 12:26:01 Heparin Bolus 4000 units I.V. was administered by Heron Sheehan RN; for anticoagulation; Verbal order read back and verified. 12:29:33 Inflate balloon Inflation number: 1 A SABER 6.0 x 6 x 150 balloon ([id number]) was prepped and advanced across the Mid Superficial Femoral, Left , then inflated to 13 ANTONIO for 0:10 (min:sec) . 12:29:52 Inflation number: 2 The SABER 6.0 x 6 x 150 balloon ([id number]) was reinflated across the Mid Superficial Femoral, Left , to 15 ANTONIO for 0:00 (min:sec) . 12:30:18 Balloon removed over the wire. 12:31:54 Inflation number: 3 The SABER 6.0 x 6 x 150 balloon ([id number]) was reinflated across the Mid Superficial Femoral, Left , to 13 ANTONIO for 0:00 (min:sec) . 12:33:07 Balloon removed over the wire. 12:36:15 SMART 6 X 120 X 120 stent ([id number]) was deployed across Mid Superficial Femoral, Left . 12:37:16 Stent catheter was removed intact over wire. 12:37:52 Inflation number: 4 The SABER 6.0 x 6 x 150 balloon ([id number]) was reinflated across the Mid Superficial Femoral, Left , to 17 ANTONIO for 0:00 (min:sec) . 12:38:07 Inflation number: 5 The SABER 6.0 x 6 x 150 balloon ([id number]) was reinflated across the Mid Superficial Femoral, Left , to 17 ANTONIO for 0:00 (min:sec) . 12:38:26 Inflation number: 6 The SABER 6.0 x 6 x 150 balloon ([id number]) was reinflated across the Mid Superficial Femoral, Left , to 17 ANTONIO for 0:00 (min:sec) . 12:39:40 Balloon removed over the wire. 12:39:41 Wire removed. 12:40:15 THE LONG SHEATH IS REPLACED WITH SHORT 6 JAPANESE SHEATH. 12:40:29 EXOSEAL 6Fr (EX600) opened to sterile field. 12:41:07 Sheath removed intact; hemostasis achieved with Exoseal to the Left Femoral artery. 12:41:20 Contrast amount:Isovue 300 75ml. 12:41:23 Procedure ended.(Physican Out) 12:41:48 ACT drawn and resulted at 308 seconds. (normal therapeutic range 180-240 seconds). 12:42:27 Fluoroscopy time 08.40 minutes. 12:43:01 Flurop Dose total: 61 12:43:01 Fluoroscopy dose: 61 mGy 12:43:08 Dose Area Product 6328 mGy/cm. 12:43:12 Maximum allowable dose exceeded? No. 12:43:19 Plavix 75 mg P.O. was administered by Heron Sheehan RN; for antiplatelet therapy; Verbal order read back and verified. 12:44:10 Sharps counted by scrub and verified by R.N. 12:44:14 Insertion/operative site no bleeding no hematoma. 12:44:20 Post-op/insertion site Left Femoral artery dressed using a 4 x 4 and Tegaderm. 12:44:27 Post left femerol artery:stable 12:44:30 Post Procedure Pulses reassessed and unchanged 12:44:34 Post-procedure physical assessment completed. ASA score P 2 - A patient with mild systemic disease as per Stew Mccullough MD. 12:44:39 Post procedure rhythm: unchanged. 12:44:43 Estimated blood loss: 10 ml 12:44:49 Post procedure instruction explained to patient.Patient verbalizes understanding. 12:44:51 Patient needs reinforcement of post procedure teaching. 12:47:24 Procedure and supply charges have been captured, reviewed, submitted and are correct. 12:47:32 Procedure Complication : No complications 12:47:38 Vital chart was stopped 12:47:49 AFRO Findings: PVD: CHRONIC SPECIALIST performed (see procedure notes) 12:47:52 Operative report dictated upon procedure completion. 12:47:53 See physician's report for complete and final results. 12:47:57 Report given to Pre/Post Procedure Room. 12:48:02 Patient transfered to Pre/Post Procedure Room with Stretcher. 12:48:26 Procedure ended. 12:48:26 Full Disclosure recording stopped 12:48:35 End room use (Document Last) Intervention Summary Intervention Notes Time ActionType Lesion and Equipment Action# Pressure Duration Attributes Used 12:29:33 Inflate Mid SABER 6.0 x 1 13 00:10 balloon Superficial 6 x 150 Femoral, balloon Left ([id number]) 12:29:52 Reinflate Mid SABER 6.0 x 2 15 00:00 balloon Superficial 6 x 150 Femoral, balloon Left ([id number]) 12:31:54 Reinflate Mid SABER 6.0 x 3 13 00:00 balloon Superficial 6 x 150 Femoral, balloon Left ([id number]) 12:36:15 Deploy self Mid SMART 6 X 1 expanding Superficial 120 X 120 stent Femoral, stent Left ([id number]) 12:37:52 Reinflate Mid SABER 6.0 x 4 17 00:00 balloon Superficial 6 x 150 Femoral, balloon Left ([id number]) 12:38:07 Reinflate Mid SABER 6.0 x 5 17 00:00 balloon Superficial 6 x 150 Femoral, balloon Left ([id number]) 12:38:26 Reinflate Mid SABER 6.0 x 6 17 00:00 balloon Superficial 6 x 150 Femoral, balloon Left ([id number]) Device Usage Item Name Manufacture Quantity Catalog Number Hospital Part Current Minim al Lot# / Charge Number Stock Stock Serial# Code ACIST Acist 1 67943 452123 471061 [id number] 20 Syringe Medical (55001) Systems Inc ACIST Hand Acist 1 50521 346288 147155 370297 5 Control Medical (00892) Systems Inc ACIST Acist 1 52754 727624 632033 491495 5 Manifold Medical (87981) Systems Inc Medline Medline 1 [id number] 061485 01837 524716 5 Cath Pack ([id number]) Bag Microtek 1 016711 15033 976232 5 DecMyrio Solution Inc. () EMERALD Cardinal 1 502-455 268056 268010 210706 5 Guide Wire Health (502-455) INFLATOR Merit 1 UW2604 015160 696504 396286 15 Merit Medical BasixCompak (XO7715) SHEATH 6FR Terumo 1 RSR01 905215 52134 615675 5 Destination (RSR01) SHEATH 6FR Terumo 1 APY096 545895 642453 942230 40 Crary (EGV939) GLIDE WIRE Terumo 1 YI0396 689626 324378 326178 5 Super Stiff Angled 260cm (HN5980) DIAGNOSTIC Tanner 1 [id number] 200094 330238 00648 5 IMT 5Fr Scientific Catheter ([id number]) CHOICE PT Tanner 1 [id number] 559927 370135 000376 5 Extra Scientific Support J 300cm guide wire ([id number]) SABER 6.0 x Cardinal 1 [id number] 491433 522345 030453 5 6 x 150 Health balloon ([id number]) SMART 6 X Cardinal 1 [id number] 780163 971727 271524 0 120 X 120 Health stent ([id number]) EXOSEAL 6Fr Cardinal 1 EX600 959158 075766 622107 10 (EX600) Health Signature Audit Morrill Stage Time Signature Unsigned Intra-Procedure 09/01/2019 Geri 12:49:10 PM Michael RT(R) (CV) Intra-Procedure 09/01/2019 Heron 12:49:45 PM Aguila SANTAMARIA Intra-Procedure 09/01/2019 Stew Mccullough 12:50:28 PM [facility] [address] [facility] [place] [address]
[~2019-09-01 08:47] MED LIST: COREG6.25 MG PO; LEXAPRO10 MG PO; LIPITOR40 MG PO; LISINOPRIL10 MG PO; PLAVIX75 MG PO; WELLBUTRIN SR150 MG PO
[2019-09-01 09:55] VITALS: BP 192/72; Ht 170.2 cm; Wt 67.3 kg
[2019-09-01 10:04] LABS: CALC OSMOLALITY 275 mosm/kg (275-300); CALCIUM 8.7 mg/dL (8.5-10.1); CARBON DIOXIDE 29.9 mmol/L (21.0-32.0); CHLORIDE - SERUM 103 mmol/L (98-107); CREATININE - SERUM 0.8 mg/dL (0.6-1.3); GLUCOSE 93 mg/dL (74-106); POTASSIUM - SERUM 3.6 mmol/L (3.5-5.1); SODIUM 139 mmol/L (136-145); UREA NITROGEN 7 mg/dL (7-18); eGFR NON AFRICAN AMERICAN > 90 mL/min (90-120)
[2019-09-01 10:09] LABS: BASOPHILS 0.1 % (0-2); EOSINOPHILS 3.5 % (0-7); HEMATOCRIT 39.3 % (42.0-54.0); HEMOGLOBIN 12.9 g/dL (13.5-17.5); IMMATURE GRANULOCYTES 0.4 % (0-5); LYMPHOCYTES 15.7 % (15-50); MCH 35.4 pg (26.0-34.0); MCHC 32.8 g/dL (31.0-37.0); MEAN PLATELET VOLUME 10.7 fL (7.4-10.4); MONOCYTES 10.4 % (2-11); NEUTROPHILS 69.9 % (40-80); RBC 3.64 10x6/uL (4.20-6.10); RDW 11.9 % (11.5-14.5); WBC 7.7 10x3/uL (4.8-10.8)
[2019-09-01 10:11] LABS: PLATELET COUNT 234 10x3/uL (130-400)
--- NOTE | 2019-09-01 13:00 | NUR ---
PT RECEIVED VIA STRETCHER FROM TAPE RECORDER REPAIRER FOR RECOVERY. PT SLEEPING BUT VERBALLY AROUSABLE. PT DENIES PAIN OR DISCOMFORT. IV PATENT INFUSING VIA ORDERS TO L ARM. PT PLACED ON CARDIAC MONITORS, O2 ON VIA NC AT 2L. L GROIN SOFT W 6FR EXOCELE, DRESSING CDI NO BLEEDING OR HEMATOMA NOTED. LEG PINK AND WARM. PT INSTRUCTED TO KEEP HEAD ON PILLOW AND LEG STRAIGHT, HE VERBALIZED UNDERSTANDING CALL LIGHT IN REACH
[2019-09-01] MEDS ORDERED: BAYER CHEWABLE81 MG PO (13:09)
--- NOTE | 2019-09-01 13:30 | NUR ---
PT RESTING COMFORTABLY, L GROIN SOFT, DRESSING CDI NO BLEEDING OR HEMATOMA NOTED. VSS. CALL LIGHT IN REACH. NOTIFED BY PHONE PER PT REQUEST TO GIVE HER UPDATE AND DISCHARGE TIME.
--- NOTE | 2019-09-01 14:17 | NUR ---
PT RESTING W/O COMPLAINTS. L GROIN SOFT, DRESSING REMAINS CDI NO BLEEDING OR HEMATOMA NOTED. IV PATENT INFUSING VIA ORDERS. LEG PINK AND WARM, PEDAL PULSES AUDIBLE. HR 53, BP 157/76, RR 13, SAT 99. CALL LIGHT REMAINS IN REACH. SIPS OF WATER GIVEN.
--- NOTE | 2019-09-01 14:44 | NUR ---
PT GIVEN URINAL. L GROIN REMAINS SOFT, DRESSING CDI NO BLEEDING OR HEMATOMA NOTED. PT DENIES PAIN OR OTHER NEEDS AT THIS TIME. CALL LIGHT IN REACH.
--- NOTE | 2019-09-01 15:15 | NUR ---
L GROIN SOFT, DRESSING CDI NO BLEEDING OR HEMATOMA NOTED. LEG PINK AND WARM, PEDAL PULSES PALPABLE. PT DENIES DISCOMFORT OR NEEDS. CALL LIGHT REMAINS IN REACH
--- NOTE | 2019-09-01 15:21 | NUR ---
550 CC CLEAR YELLOW URINE EMPTIED FROM URINAL
--- NOTE | 2019-09-01 15:52 | NUR ---
L GROIN REMAINS SOFT, DRESSING CDI NO BLEEDING OR SWELLING NOTED. VSS. HOB ELEVATED SLIGHTLY, SANDWICH AND COLA SERVED. VSS. CALL LIGHT IN REACH.
--- NOTE | 2019-09-01 16:18 | NUR ---
PT TOLERATED PO FOOD AND DRINK W/O NAUSEA. DENIES PAIN OR DISCOMFORT. IV HAD DISCONNECTED AND SMALL AMOUNT OF BLOOD ON SHEET, LINEN AND GOWN CHANGED, IV RE SECURED. L GROIN SOFT, NO BLEEDING OR SWELLING NOTED. LEG PINK AND WARM. VSS. BP SLIGHTLY ELEVATED DUE TO PT NOT TAKING HIS BP MEDICINE THIS AM, INSTRUCTED TO TAKE WHEN DISCHARGED.
--- NOTE | 2019-09-01 16:40 | NUR ---
L GROIN REMAINS DISCHARGE INSTRUCTIONS REVIEWED W PT HER VERBALIZED UNDERSTANDING. IV REMOVED W CATH INTACT, CARDIAC MONITORS REMOVED. PT UP TO DRESS FOR DISCHARGE.
--- NOTE | 2019-09-01 16:45 | NUR ---
PT AMBULATED TO BR, VOIDING W/O DIFFICULITY PT DISCHARGED VIA WC TO NEPHEW WAITING IN PRIVATE VEHICLE.
--- NOTE | 2019-09-02 11:41 | OP ---
PATIENT NAME: RADHA CHUN MEDICAL RECORD: [id number] :45 LOCATION:[facility] ADMISSION DATE: SURGEON: CARLEEN CHRISTIE MD DATE OF OPERATION: 09/01/2019 PROCEDURES: 1. Stent placement, right SFA. 2. DIRECTOR SALES TRAINING, right SFA. 3. Unilateral extremity angiography. INDICATION: Claudication and peripheral vascular disease. PROCEDURE IN DETAIL: After informed consent was obtained and after a detailed description of the risks, benefits as well as alternative therapies, the patient elected to proceed with angiogram and angioplasty. The left femoral area was prepped and draped in normal sterile fashion. Left femoral artery was cannulated via modified Seldinger technique with placement of a 6-Bahraini uqxjls-emy-ltbt sheath. All catheters exchanged through this sheath. FINDINGS: The right SFA has multiple areas of greater than 90% stenosis. This was addressed with a 6.0 balloon. This yielded suboptimal result with severe intimal dissection. Stenting was undertaken with a 6 x 120 SMART stent. Result was 0% residual stenosis. OVERALL IMPRESSION: Successful DIRECTOR SALES TRAINING stent of the right SFA going from multiple areas of greater than 90% initial stenosis to 0% residual. TRANSINT:[id number] Voice Confirmation ID: [id number] DOCUMENT ID: [id number] CARLEEN CHRISTIE MD at 1141 CC: [id number] DICTATION DATE: 09/01/19 1245 YARN DRY ROOM WORKER: 09/01/19 1250 DEP CLI 09/01/19 [place] [id number]
== END 2019-09-01 16:45 | disposition home or self-care (01) ==
LOC: D.CATH 08:47
PROVIDERS: ATTEND Internal Medicine Interventional Cardiology
DX: I70.211 Atherosclerosis of native arteries of extremities with intermittent claudication, right leg (principal)